=== PATIENT | female | born 1960 | race Caucasian/White ===

== ENCOUNTER 2025-03-09 06:31 | Day surgery (SDC) | payer OTHER ==
[2025-03-06 10:31] VITALS: BMI 32.7
[2025-03-09] MEDS ORDERED: LIDOCAINE HCL/PF 2% SDV 5ML VIAL ONE (07:13)
[2025-03-09] MEDS ORDERED: MIDAZOLAM HCL 2 MG/2 ML SINGLE DOSE VIAL ONE (07:14)
[2025-03-09] MEDS ORDERED: PROPOFOL 20 ML ONE (07:14)
[2025-03-09] MEDS ORDERED: VANCOMYCIN 1,000 MG VIAL (RESTRICTED TO ID ONLY) ONE (08:10)
[2025-03-09] MEDS ORDERED: GENTAMICIN SO4 80 MG/2 ML VIAL ONE (08:11)
[2025-03-09] MEDS ORDERED: BUPIVACAINE HCL/EPINEPHRINE/PF 30 ML VIAL IJ ONE (08:11)
[2025-03-09] MEDS ORDERED: MUPIROCIN 2% TOPICAL OINTMENT FOR DECOLONIZATION NS ONE (08:13)
[2025-03-09] MEDS ORDERED: DEXAMETHASONE SOD PHOSPHATE 4 MG/1 ML VIAL ONE (08:33)
[2025-03-09] MEDS ORDERED: SULFAMETHOXAZOLE 80 MG/TRIMETHOPRIM 16 MG/ML VIAL IVPB ONE (08:45)
[2025-03-09] MEDS ORDERED: ONDANSETRON 4 MG/2 ML VIAL IVPUSH PRN (09:13)
[2025-03-09] MEDS ORDERED: PROMETHAZINE HCL 25 MG/1 ML VIAL IVPB PRN (09:13)
[2025-03-09] MEDS ORDERED: LACTATED RINGERS SOLUTION 1,000 ML IV SCH (09:15)
[2025-03-09] MEDS ORDERED: KETOROLAC TROMETHAMINE 30 MG/1 ML VIAL ONE (09:25)
[2025-03-09] MEDS ORDERED: BENZOIN/ALOE VERA/STORAX/TOLU 58 ML BOTTLE ONE (09:50)
[2025-03-09] MEDS ORDERED: ACETAMINOPHEN INJECTION 100 ML ONE (10:17)
[2025-03-09] MEDS: ACETAMINOPHEN 1000 MG/100 ML BAG IVPB ONE (10:30)
[2025-03-09 11:25] VITALS: RESP 16; TEMP 99
[2025-03-09 12:13] VITALS: BP 125/77; PULSE 98
== END 2025-03-09 12:13 | disposition home or self-care (01) ==
LOC: FASU 06:31
PROVIDERS: ATTEND Plastic Surgery
PROC: 0HBJXZZ Excision of Left Upper Leg Skin, External Approach (ICD-10-PCS; 2025-03-09)
PROC: 0HRLX74 Replacement of Left Lower Leg Skin with Autologous Tissue Substitute, Partial Thickness, External Approach (ICD-10-PCS; principal; 2025-03-09 09:03)
DX: S81.802A Unspecified open wound, left lower leg, initial encounter (principal); Z87.81 Personal history of (healed) traumatic fracture
CPT/HCPCS: 94760